=== PATIENT | female | born 1980 | race Caucasian/White ===

== ENCOUNTER 2016-09-27 11:35 | Emergency (ER) | payer OTHER ==
[~2016-09-27] VITALS: Ht 161.3 cm; Wt 51.6 kg
[2016-09-27 11:38] VITALS: TEMP 37; Ht 161.3 cm; Wt 51.6 kg
[2016-09-27] MEDS ORDERED: HYDR-5688 PO (12:20)
[2016-09-27] MEDS ORDERED: PENI500T2 PO (12:20)
[2016-09-27 12:33] VITALS: BP 111/81; PULSE 86; O2SAT 97
--- NOTE | 2016-09-28 09:52 | EMERGENCY ROOM VISIT NOTE ---
ED Visit Note First contact with patient: 11:56 CHIEF COMPLAINT: Toothache. HISTORY OF PRESENT ILLNESS: Ms. Echeverria is a 36-year-old white female who ambulates into the complaining of dental pain and facial swelling. She reports a progressive dental pain for 4 days over the right maxilla. The pain is now steady and severe and radiates to the face. She has been using ibuprofen but has had no relief of her discomfort but last night the pain became severe. This morning when she awoke from sleep she noted that there was swelling on the right side of the face. Currently she is complaining of pain in the area of tooth maxillary molars. She rates her discomfort 8/10. Her.is pain does radiate towards the ear. Her pain worsens with chewing and exposure hot and cold foods. Over the last 48 hours she has not had any relief from [id number] medications. Associated with her pain she reports she has had some chills but no cornell fevers, facial swelling. She denies any associated symptoms including sweats, sore throat, difficulty swallowing, voice changes, drooling, hearing changes, ear drainage. REVIEW OF SYSTEMS: As noted above in History of Present Illness. 8 body systems were reviewed with this patient and found to be negative unless noted above otherwise. PMH: Asthma. CURRENT MEDICATION: Patient denies.. ALLERGIES TO MEDICATION: Patient denies. SOCIAL HISTORY: Patient is not employed; she feels safe in her home environment ; tobacco and alcohol use. PHYSICAL EXAM: Vital Signs: Date Time Temp Pulse Resp B/P Pulse Ox O2 Delivery O2 Flow Rate FiO2 09/27/16 12:33 86 16 111/81 97 09/27/16 11:38 37.0 101 18 117/78 95 Room Air General: 36 year-old white female in moderate distress due to pain, nontoxic appearing, afebrile and hemodynamically stable. Neurological: Awake, alert and oriented to person, place and time. Answering questions appropriately and following commands. Normal gait. Good hand eye coordination. No focal motor or sensory deficits. Skin: Warm, dry and pink. HEENT: Atraumatic and normocephalic. Right sided facial swelling and mild erythema was noted consistent with dental abscess. The skin did not appear cellulitic. Oral cavity is moist and pink. Airway is patent. Uvula is midline. Speech is normal. No drooling. Over the right maxillary area patient's teeth 1 and 2 were obviously decayed. Throughout the gingiva in that area and there was mild erythema or edema. I was not able to palpate a focal dental abscess. No cervical or submandibular lymphadenopathy. ED COURSE: Patient is assessed as noted above. Patient is educated about his findings and instructed on her treatment plan; she verbalizes understanding and agreement with this plan. CLINIC IMPRESSION: Dental abscess. DISPOSITION: Patient discharged home in stable condition; prior to departure she was reassessed and subjectively reported she was feeling the same. PLAN: Patient was prescribed Pen-Vee K 500 mg 4 times a day for 10 days. Patient was placed on a sliding pain medication scale of ibuprofen, acetaminophen and [place]arrass. Appropriate narcotic precautions were discussed with the patient. Patient was encouraged to followup with dentist for definitive care and treatment. Patient was encouraged to return the ED for uncontrolled pain, facial swelling uncontrolled fevers or any new/concerning symptoms.
== END 2016-09-27 12:34 | disposition home or self-care (01) ==
LOC: C.EDB 11:38 → C.EDD 12:34
DX: K04.7 Periapical abscess without sinus (principal)